=== PATIENT | female | born 1995 | race Hispanic/Latino ===

== ENCOUNTER 2023-10-12 08:45 | Emergency (ER) | payer OTHER ==
[~2023-10-12] VITALS: Ht 170.2 cm; Wt 67.1 kg
[~2023-10-12 08:45] MED LIST: DOXY1TAB3 PO
[2023-10-12 09:25] LABS: BASOPHILS # (AUTO) 0.02 K/uL (0.00-0.20); BASOPHILS % (AUTO) 0.2 % (0.0-5.0); EOSINOPHILS # (AUTO) 0.03 K/uL (0.00-0.70); EOSINOPHILS % (AUTO) 0.3 % (0.0-8.0); IMMATURE GRANULOCYTE ABSOLUTE 0.07 K/uL (0-1); LYMPHOCYTES # (AUTO) 1.3 K/uL (1.0-4.8); LYMPHOCYTES % (AUTO) 15.1 % (21.0-51.0); MEAN CORPUSCULAR HEMOGLOBIN 31.7 pg (27.0-33.0); MEAN CORPUSCULAR HGB CONC 34.1 g/dL (32.0-36.0); MONOCYTES # (AUTO) 0.2 K/uL (0.1-1.0); MONOCYTES % (AUTO) 2.6 % (3.0-13.0); NEUTROPHILS # (AUTO) 7.1 K/uL (1.8-7.7); PLATELET COUNT (AUTO) 176 K/uL (130-400); RED BLOOD CELL COUNT(AUTO) 3.98 MIL/uL (4.00-5.50); RED CELL DISTRIBUTION WIDTH 13.2 % (11.0-15.5); WHITE BLOOD COUNT (AUTO) 8.7 K/uL (4.8-10.8)
[2023-10-12 09:31] LABS: CREATININE 0.6 mg/dL (0.5-1.0); POTASSIUM 3.3 mmol/L (3.5-5.1)
[2023-10-12 09:45] LABS: APPEARANCE,URINE CLEAR (CLEAR); BILIRUBIN,URINE NEGATIVE (NEGATIVE); COLOR,URINE YELLOW (YELLOW); GLUCOSE, URINE (UA) NEGATIVE (NEGATIVE); KETONES,URINE NEGATIVE (NEGATIVE); LEUKOCYTE ESTERASE ,URINE NEGATIVE Leu/uL (NEGATIVE); NITRATE,URINE NEGATIVE (NEGATIVE); OCCULT BLOOD,URINE NEGATIVE (NEGATIVE); PH,URINE 6.5 (5.0-8.0); PROTEIN,URINE 10 mg/dL (NEGATIVE)
[2023-10-12 09:50] LABS: ADD UA MICROSCOPIC YES
[2023-10-12 10:05] LABS: MUCUS,URINE FEW LPF (None Seen); RBC,URINE 0-1 /HPF (0-1); SQUAMOUS EPITHELIAL CELL,UR RARE /HPF (0-2); WBC,URINE 0-1 /HPF (0-1)
[2023-10-12] MEDS: 0.9%NACL 1000ML 1,000 ML IV ONE ×2 (10:36→15:37)
[2023-10-12] MEDS: NS-20 MEQ KCL 1000ML 1,000 ML IV SCH (10:49)
[2023-10-12] MEDS ORDERED: IOHEXOL 350 MG/ML 100ML INFUS..BTL IV ONE (13:13)
[2023-10-12] MEDS: ACETAMINOPHEN 500 MG TABLET PO ONE (15:37)
[2023-10-12] MEDS ORDERED: ONDA-243 PO (15:49)
[2023-10-12] MEDS ORDERED: POTA-192 PO (15:49)
[2023-10-12] MEDS ORDERED: LORA10TA7 PO (15:49)
[2023-10-12] MEDS ORDERED: DIPH50 PO (15:49)
[2023-10-12 16:45] VITALS: BP 110/56; PULSE 86; RESP 16; O2SAT 98
== END 2023-10-12 16:52 | disposition home or self-care (01) ==
LOC: EDH 08:45
DX: O26.892 Other specified pregnancy related conditions, second trimester (principal); E87.6 Hypokalemia; R10.2 Pelvic and perineal pain; R07.89 Other chest pain; O99.512 Diseases of the respiratory system complicating pregnancy, second trimester; J45.909 Unspecified asthma, uncomplicated; Z3A.18 18 weeks gestation of pregnancy
CPT/HCPCS: 99285; 96360; 71270; 76705; 76805; 96361; 84484; 80048; 84702; 83690; 85025; 85378; 81001; 36415; 93005; J7030 ×2; J3480; Q9967

== ENCOUNTER → 2023-11-13 | Outpatient (CLI) | payer OTHER ==
[~2023-11-13] MED LIST changes: +DIPH50 PO; +LORA10TA7 PO; +ONDA-243 PO; +POTA-192 PO
== END | disposition home or self-care (01) ==
LOC: LAB 09:35
PROVIDERS: ATTEND Obstetrics & Gynecology
DX: Z36.0 Encounter for antenatal screening for chromosomal anomalies (principal)
CPT/HCPCS: 36415; 81420; 81422